=== PATIENT | female | born 1955 | race Caucasian/White ===

== ENCOUNTER 2022-01-06 07:55 | Emergency (ER) | payer MEDICARE ==
[~2022-01-06] VITALS: Ht 175.3 cm; Wt 113.6 kg
[~2022-01-06 07:55] MED LIST: ADV50250 IH; ALB0.5UD IH; ALBU8.5H17 IH; ASPI-529 PO; FURO40TA4 PO; IBUP-24 PO; LISI-232 PO; SPIIN INH; [UNRECOGNIZED DRUG - OTHER] NS
[2022-01-06 09:16] LABS: BASOPHILS % (AUTO) 0.3 % (0-1); EOSINOPHILS % (AUTO) 0.1 % (0-6); HEMATOCRIT 43.7 % (35.0-45.0); HEMOGLOBIN 14.4 g/dl (12.0-16.0); LYMPHOCYTES # (AUTO) 1.7 X10'3 (1.1-4.8); LYMPHOCYTES % (AUTO) 16.7 % (21-51); MEAN CORPUSCULAR HEMOGLOBIN 30.3 PG (27.0-31.0); MEAN CORPUSCULAR VOLUME 91.7 FL (78-98); MEAN PLATELET VOLUME 8.3 FL (7.4-10.4); MONOCYTES # (AUTO) 0.6 X10'3 (0-0.9); MONOCYTES % (AUTO) 6.3 % (2-12); NEUTROPHILS # (AUTO) 7.7 X10'3 (1.8-7.7); NEUTROPHILS % (AUTO) 76.6 % (42-75); PLATELET COUNT 214 X10'3 (140-440); RED BLOOD COUNT 4.77 X10'6 (4.20-5.60); RED CELL DISTRIBUTION WIDTH 14.7 % (11.5-14.5)
[2022-01-06 09:29] LABS: ALANINE AMINOTRANSFERASE 25 U/L (12-78); ALBUMIN 3.8 G/DL (3.4-5.0); ALBUMIN/GLOBULIN RATIO 1.1 (1.1-1.5); ALKALINE PHOSPHATASE 85 IU/L (46-116); ANION GAP 12 (8-16); ASPARTATE AMINO TRANSFERASE 20 U/L (10-37); BILIRUBIN,TOTAL 0.4 MG/DL (0.1-1.0); BLOOD UREA NITROGEN 23 MG/DL (7-18); BUN/CREATININE RATIO 25.6 (6.6-38.0); CALCIUM 9.5 MG/DL (8.5-10.1); CHLORIDE 100 MMOL/L (99-107); GLUCOSE 126 MG/DL (70-104); POTASSIUM 4.4 MMOL/L (3.5-5.1); SODIUM 136 MMOL/L (135-145); TOTAL CARBON DIOXIDE 24.5 MMOL/L (24-32); TOTAL PROTEIN 7.3 G/DL (6.4-8.2); eGFR 62 ML/MIN
--- NOTE | 2022-01-06 11:04 | NUR ---
PT COMPLAINS OF PAIN AND NUMBNESS DOWN BILAT LEGS, AND LEFT ARM INTO FINGERS. PT C/O OF 9/10 LOWER BACK PAIN. CHEST TIGHTNESS RESOLVED
[2022-01-06] MEDS ORDERED: morphine 4 MG/ML inj SYRINge IV ONE ×2 (11:50→13:10)
--- NOTE | 2022-01-06 12:10 | NUR ---
pt to ct
[2022-01-06] MEDS ORDERED: HYDR-3965 PO (13:09)
[2022-01-06] MEDS ORDERED: ketorolac tromethamine 15mg/ml inj. IV ONE (13:10)
[2022-01-06 13:31] VITALS: BP 146/88
== END 2022-01-06 13:41 | disposition home or self-care (01) ==
LOC: ER 07:55
DX: M54.16 Radiculopathy, lumbar region (principal); R20.0 Anesthesia of skin; I10 Essential (primary) hypertension; J44.9 Chronic obstructive pulmonary disease, unspecified; E11.9 Type 2 diabetes mellitus without complications; Z88.8 Allergy status to other drugs, medicaments and biological substances; Z79.82 Long term (current) use of aspirin; Z79.899 Other long term (current) drug therapy
CPT/HCPCS: 36415; 71045; 72131; 80053; 83880; 84484; 85025; 93005; 96374; 96375; 96376; 99285; J1885; J2270